=== PATIENT | male | born 1995 ===

== ENCOUNTER 2018-07-28 15:14 | Emergency (ER) | payer SELFPAY ==
[2018-07-28 15:33] VITALS: RESP 20; TEMP 98.3; O2SAT 99
--- NOTE | 2018-07-28 15:44 | C.PDOC ---
History Of Present Illness 23 y/o M c no PMHx p/w R sided facial droop x 2 days. States woke up yesterday morning with these symptoms. Denies extremity weakness or numbness. Denies pain. Denies vision change. Time Seen by Provider: 07/28/18 15:36 Chief Complaint (Nursing): Weakness/Neurological Deficit Past Medical History Vital Signs: Last Vital Signs Temp 98.3 F 07/28/18 15:19 Pulse 79 07/28/18 15:19 Resp 20 07/28/18 15:19 BP 137/95 H 07/28/18 15:19 Pulse Ox 99 07/28/18 15:19 Family History: States: No Known Family Hx - Social History Hx Alcohol Use: Yes Hx Substance Use: No - Immunization History Hx Tetanus Toxoid Vaccination: No Hx Influenza Vaccination: No Hx Pneumococcal Vaccination: No Review Of Systems Except As Marked, All Systems Reviewed And Found Negative. Constitutional: Negative for: Fever Respiratory: Negative for: Shortness of Breath Physical Exam - Physical Exam Additional Physical Exam Comments: Gen: NAD Head: NC/AT Eyes: PERRL ENT: MMM Neck: Supple. No midline tenderness Chest: No tenderness CV: Regular rate Lungs: CTA b/l Abd: Soft, NT Back: No CVA tenderness Extremities: No edema Skin: No rash Neuro: Alert. Motor 5/5 x 4. Sensation to light touch intact. Gait normal. R facial droop that involves the forehead. ED Course And Treatment O2 Sat by Pulse Oximetry: 99 Medical Decision Making Medical Decision Making: Symptoms and examination consistent with valera's palsy. Will discharge, f/u Ophtho and clinic, return to ED for worsening pain, motor weakness, numbness, gait instability, vision change, or any other neuro deficit. Disposition - Disposition Referrals: Prabhjot Drake [Staff Provider] - [facility] [Outside] Disposition: HOME/ ROUTINE Disposition Time: 15:46 Condition: STABLE Prescriptions: Acyclovir [Zovirax] 400 mg PO 5XD #34 tab Mineral Oil/White Petrolatum [Artificial Tears] 1 appl OD QPM #1 tube Polyethylene Glycol/Polyvinyl [Artificial Tears] 2 drop OD Q1H #1 bottle Prednisone [Deltasone] 3 tab PO DAILY #18 tablet Instructions: Valera's Palsy Forms: [facility] (Moroccan), Gen Discharge Inst Vietnamese Print Language: SLOVENIAN - Clinical Impression Clinical Impression: Valera's palsy
[2018-07-28 16:14] VITALS: BP 125/79; PULSE 81
--- NOTE | 2018-07-29 10:47 | CARD ---
APPROVED REPORT Date of service: 07/28/2018 EKG Measurement Heart [id number] <Conclusion> Normal sinus rhythm. can not r/o septal mi.rsr in v1. Abnormal ECG
== END 2018-07-28 16:34 | disposition home or self-care (01) ==
LOC: C.ER 15:14
DX: G51.0 Bell's palsy (principal)